=== PATIENT | male | born 1985 | race Two or more races ===

== ENCOUNTER 2022-04-05 20:15 | Emergency (ER) | payer MEDICAID ==
[~2022-04-05] VITALS: Ht 188 cm; Wt 162.0 kg
[2022-04-05 20:43] VITALS: BP 141/104
[2022-04-05 21:22] LABS: Basophils # (auto) 0.1 10 ^3/uL (0-0.2); Hemoglobin 15.5 g/dL (13.5-17.5); Lymphocytes # (auto) 2.2 10 ^3/uL (0.4-5.4); Lymphocytes % (auto) 20.4 % (10.0-50.0); Monocytes # (auto) 1.2 10 ^3/uL (0-1.3); Monocytes % (auto) 11.3 % (0.0-12.0); Neutrophils # (auto) 7.1 10 ^3/uL (1.6-8.6); Red Cell Distribution Width 14.7 % (11.8-14.3)
[2022-04-05 21:23] LABS: Basophils % (auto) 0.5 % (0.0-2.0); Eosinophils # (auto) 0.2 10 ^3/uL (0-0.8); Eosinophils % (auto) 2.1 % (0.0-7.0); Hematocrit 46.6 % (41.0-53.0); Mean Corpuscular Hemoglobin 26.9 pg (28.0-32.0); Mean Corpuscular Hgb Conc. 33.3 g/dL (32.0-36.0); Mean Corpuscular Volume 80.7 fL (80.0-100.0); Neutrophils % (auto) 65.7 % (37.0-80.0); Red Blood Cells 5.77 10^6/uL (4.5-5.90); White Blood Cell 10.8 10^3/uL (4.4-10.8)
[2022-04-05] MEDS ORDERED: KETOROLAC TROMETH 60MG/2ML VIAL IM ONE (22:30)
[2022-04-05] MEDS ORDERED: methylPREDNISolone SOD SUCC 125 MG/2 ML VL IM ONE (22:30)
[2022-04-05] MEDS ORDERED: INDO50CA82 PO (22:32)
[2022-04-05] MEDS ORDERED: PRED30TA4 PO (22:32)
== END 2022-04-05 23:01 | disposition home or self-care (01) ==
LOC: ER 20:18
DX: M10.071 Idiopathic gout, right ankle and foot (principal)
CPT/HCPCS: 36415; 84550; 85025; 96372; 99284; J1885; J2930